=== PATIENT | female | born 1990 | race Two or more races ===

== ENCOUNTER 2016-10-14 14:07 | Emergency (ER) | payer MEDICAID ==
[~2016-10-14] VITALS: Ht 152.4 cm; Wt 70.0 kg
[2016-10-14 14:57] VITALS: BP 124/80
== END 2016-10-14 17:18 | disposition home or self-care (01) ==
LOC: ER 14:08
DX: J06.9 Acute upper respiratory infection, unspecified (principal); Z88.6 Allergy status to analgesic agent
CPT/HCPCS: 99283